=== PATIENT | female | born 1985 | race Two or more races ===

== ENCOUNTER 2022-06-11 08:14 | Day surgery (SDC) | payer OTHER ==
[~2022-06-11] VITALS: Ht 152.4 cm; Wt 68.0 kg
[~2022-06-11 08:14] MED LIST: BUSPIRONE HCL7.5 MG
[2022-06-11] MEDS ORDERED: SULFAMETHOXAZO1 EACH PO (15:15)
== END 2022-06-11 18:40 | disposition home or self-care (01) ==
LOC: CIR.AMB 08:14
PROVIDERS: ATTEND Student in an Organized Health Care Education/Training Program
DX: N87.1 Moderate cervical dysplasia (principal); Z91.013 Allergy to seafood; Z88.0 Allergy status to penicillin; Z88.6 Allergy status to analgesic agent; Z20.822 Contact with and (suspected) exposure to COVID-19; Z86.16 Personal history of COVID-19

== ENCOUNTER → 2024-03-14 14:49 | Outpatient (CLI) | payer OTHER ==
[~2024-03-14 14:49] MED LIST changes: +SULFAMETHOXAZO1 EACH PO
== END | disposition home or self-care (01) ==
LOC: PRENATAL 14:49
PROVIDERS: ATTEND Obstetrics & Gynecology Maternal & Fetal Medicine
DX: O36.80X0 Pregnancy with inconclusive fetal viability, not applicable or unspecified (principal); Z36.82 Encounter for antenatal screening for nuchal translucency; O09.519 Supervision of elderly primigravida, unspecified trimester; Z36.9 Encounter for antenatal screening, unspecified; Z14.8 Genetic carrier of other disease; O34.10 Maternal care for benign tumor of corpus uteri, unspecified trimester; O34.40 Maternal care for other abnormalities of cervix, unspecified trimester; Z3A.12 12 weeks gestation of pregnancy

== ENCOUNTER 2024-04-04 18:32 | Emergency (ER) | payer OTHER ==
[~2024-04-04] VITALS: Ht 152.4 cm; Wt 66.2 kg
[2024-04-04] MEDS ORDERED: WELLBUTRIN SR100 MG PO (19:07)
[2024-04-04] MEDS ORDERED: 0.9 % SODIUM CHLORIDE 1,000 ML IV SCH (19:30)
[2024-04-04] MEDS ORDERED: MEPERIDINE HCL/PF 25 MG/ML VIAL IV ONE (19:30)
[2024-04-04 20:20] LABS: HEMATOCRIT 31.7 % (36.0-45.00); MEAN CELL VOLUME 87.3 fL (80.00-100.00); MEAN CORPUSCULAR HEMOGLOBIN 30.2 pg (27.00-32.0); MEAN CORPUSCULAR HGB CONC 34.5 g/dl (32.0-36.0); PLATELET COUNT 315 K/uL (150-450); RED BLOOD COUNT 3.63 M/uL (4.00-6.00); RED CELL DISTRIBUTION WIDTH 13.6 % (11.5-14.5)
[2024-04-04 20:38] LABS: CREATININE SERUM 0.65 mg/dL (0.55-1.02); GFR 101.47; POTASSIUM 4.53 mEq/L (3.5-5.1)
[2024-04-04 22:04] LABS: PH,URINE 6.5 (5.0-8.0); URINE APPEARANCE Cloudy; URINE BILIRRUBIN Negative (NEGATIVE); URINE COLOR Yellow; URINE GLUCOSE Negative (NEGATIVE); URINE LEUKOCYTE Trace; URINE NITRATE Negative; URINE PROTEIN Negative (NEGATIVE); URINE UROBILINOGEN 0.2 E.U./dl
[2024-04-04 22:08] LABS: URINE BACTERIA 846.6 uL (0.0-1933); URINE EPITHELIAL CELLS 121.9 uL (0.0-38.8); URINE RBC 34.8 uL (0.0-20.8); URINE WBC 25.1 uL (0.0-23.2)
[2024-04-04 22:10] LABS: URINE BLOOD TRACE; URINE CAST 0.15 uL (0.0-1.40); URINE KETONE 40 (NEGATIVE)
== END 2024-04-04 23:31 | disposition home or self-care (01) ==
LOC: ER 18:34
PROVIDERS: Emergency Medicine
DX: O26.892 Other specified pregnancy related conditions, second trimester (principal); R10.2 Pelvic and perineal pain; O34.12 Maternal care for benign tumor of corpus uteri, second trimester; Z3A.15 15 weeks gestation of pregnancy; Z88.6 Allergy status to analgesic agent; Z88.0 Allergy status to penicillin; Z91.013 Allergy to seafood

== ENCOUNTER → 2024-04-07 | Emergency (ER) | payer OTHER ==
[~2024-04-07] MED LIST changes: +WELLBUTRIN SR100 MG PO
== END | disposition left against medical advice (07) ==
LOC: ER 18:27
DX: Z53.21 Procedure and treatment not carried out due to patient leaving prior to being seen by health care provider (principal)

== ENCOUNTER → 2024-05-17 13:19 | Outpatient (CLI) | payer OTHER ==
[~2024-05-17 13:19] MED LIST changes: +PRENATAL + DHA1 EAC1 PO
== END | disposition home or self-care (01) ==
LOC: PRENATAL 13:19
PROVIDERS: ATTEND Obstetrics & Gynecology Maternal & Fetal Medicine
DX: O35.00X0 Maternal care for (suspected) central nervous system malformation or damage in fetus, unspecified, not applicable or unspecified (principal); O35.3XX0 Maternal care for (suspected) damage to fetus from viral disease in mother, not applicable or unspecified; O44.00 Complete placenta previa NOS or without hemorrhage, unspecified trimester; O09.519 Supervision of elderly primigravida, unspecified trimester; O34.40 Maternal care for other abnormalities of cervix, unspecified trimester; Z3A.21 21 weeks gestation of pregnancy

== ENCOUNTER 2024-06-12 13:46 | Outpatient (CLI) | payer OTHER ==
[~2024-06-12] VITALS: Ht 152.4 cm; Wt 72.1 kg
[~2024-06-12 13:46] MED LIST changes: -PRENATAL + DHA1 EAC1 PO
[2024-06-12 14:40] VITALS: BP 101/67
[2024-06-12 14:58] LABS: PH,URINE 6.5 (5.0-8.0); URINE APPEARANCE Clear; URINE BACTERIA 799.2 uL (0.0-1933); URINE BILIRRUBIN Negative (NEGATIVE); URINE BLOOD NHT; URINE COLOR Yellow; URINE EPITHELIAL CELLS 56.2 uL (0.0-38.8); URINE GLUCOSE Negative (NEGATIVE); URINE LEUKOCYTE Negative; URINE NITRATE Negative; URINE PROTEIN Negative (NEGATIVE); URINE RBC 30.7 uL (0.0-20.8); URINE UROBILINOGEN 0.2 E.U./dl; URINE WBC 7.1 uL (0.0-23.2)
[2024-06-12] MEDS ORDERED: PRENATAL + DHA1 EAC1 PO (15:10)
[2024-06-12 15:12] VITALS: BP 103/62
[2024-06-12 15:12] LABS: HEMATOCRIT 32.2 % (36.0-45.00); MEAN CELL VOLUME 88.8 fL (80.00-100.00); MEAN CORPUSCULAR HGB CONC 33.2 g/dl (32.0-36.0); PLATELET COUNT 311 K/uL (150-450); RED BLOOD COUNT 3.63 M/uL (4.00-6.00); RED CELL DISTRIBUTION WIDTH 14.9 % (11.5-14.5)
[2024-06-12 15:16] LABS: AMYLASE 64 U/L (25-115); LIPASE 24 U/L (13-75)
[2024-06-12 15:23] LABS: HEMOGLOBIN 10.7 g/dL (12.0-15.00); MEAN CORPUSCULAR HEMOGLOBIN 29.4 pg (27.00-32.0)
[2024-06-12 15:32] LABS: ALBUMIN 2.7 gm/dL (3.4-5.0); BILIRUBIN TOTAL 0.25 mg/dL (0.3-1.2); CREATININE SERUM 0.3 mg/dL (0.55-1.02); GFR 247.66; GLOBULINA 3.4 G/DL (2.4-3.5); POTASSIUM 3.54 mEq/L (3.5-5.1); TOTAL PROTEIN 6.1 gm/dL (6.4-8.2)
[2024-06-12 15:43] LABS: URINE CAST 0.88 uL (0.0-1.40); URINE KETONE 40 (NEGATIVE)
[2024-06-12 16:18] VITALS: BP 101/67; BP 103/62
[2024-06-12] MEDS ORDERED: WELLBUTRIN 150 MG PO SCH ×2 (17:00→21:00)
[2024-06-12] MEDS ORDERED: BUSPIRONE PO SCH ×2 (17:00→21:00)
[2024-06-12] MEDS ORDERED: SOD FERRIC GLUC COMPLX/SUCROSE 62.5 MG/5 ML AMPUL IV NR (18:00)
[2024-06-12 19:40] VITALS: BP 100/63
[2024-06-12 23:15] VITALS: BP 96/61
[2024-06-13 04:42] VITALS: BP 90/56
[2024-06-13 06:04] VITALS: BP 103/70; O2SAT 98
[2024-06-13] MEDS ORDERED: VALTREX 1000 MG PO SCH (09:00)
[2024-06-13 12:28] VITALS: BP 99/72
== END 2024-06-13 13:38 | disposition home or self-care (01) ==
LOC: OBS/DEL 13:46 → LDR 17:00 → OBS/DEL 17:00 → LDR 06-13 13:38
PROVIDERS: Student in an Organized Health Care Education/Training Program; ATTEND General Practice
DX: O26.892 Other specified pregnancy related conditions, second trimester (principal); O34.10 Maternal care for benign tumor of corpus uteri, unspecified trimester; R10.2 Pelvic and perineal pain

== ENCOUNTER 2024-08-01 10:26 | Outpatient (CLI) | payer OTHER ==
[~2024-08-01 10:26] MED LIST changes: +PRENATAL + DHA1 EAC1 PO
== END 2024-08-01 10:27 | disposition home or self-care (01) ==
LOC: PRENATAL 10:26
PROVIDERS: ATTEND Obstetrics & Gynecology Maternal & Fetal Medicine
DX: O26.849 Uterine size-date discrepancy, unspecified trimester (principal); O36.8199 Decreased fetal movements, unspecified trimester, other fetus; O09.519 Supervision of elderly primigravida, unspecified trimester; O34.10 Maternal care for benign tumor of corpus uteri, unspecified trimester; O34.40 Maternal care for other abnormalities of cervix, unspecified trimester; O32.9XX0 Maternal care for malpresentation of fetus, unspecified, not applicable or unspecified; Z3A.32 32 weeks gestation of pregnancy

== ENCOUNTER 2024-08-29 12:45 | Outpatient (CLI) | payer OTHER | END 2024-08-29 12:48 | disposition home or self-care (01) | LOC: PRENATAL 12:45 | PROVIDERS: ATTEND Obstetrics & Gynecology Maternal & Fetal Medicine | DX: O26.849 Uterine size-date discrepancy, unspecified trimester (principal); O36.8199 Decreased fetal movements, unspecified trimester, other fetus; O09.519 Supervision of elderly primigravida, unspecified trimester; O34.10 Maternal care for benign tumor of corpus uteri, unspecified trimester; O34.40 Maternal care for other abnormalities of cervix, unspecified trimester; O32.9XX0 Maternal care for malpresentation of fetus, unspecified, not applicable or unspecified; Z3A.36 36 weeks gestation of pregnancy ==

== ENCOUNTER 2024-09-14 13:03 | Inpatient (IN) | payer OTHER ==
[~2024-09-14] VITALS: Ht 152.4 cm; Wt 3.6 kg
[2024-09-14 11:53] VITALS: BP 112/56
[2024-09-14] MEDS ORDERED: RINGERS SOLUTION,LACTATED 1,000 ML IV SCH (13:45)
[2024-09-14] MEDS ORDERED: ACETAMINOPHEN 500 MG GEL..CAP PO ONE ×3 (14:00→21:30)
[2024-09-14] MEDS ORDERED: VALTREX1000 MG PO (14:20)
[2024-09-14 14:46] LABS: URINE APPEARANCE Clear; URINE BILIRRUBIN Negative (NEGATIVE); URINE BLOOD Negative; URINE COLOR Yellow; URINE GLUCOSE Negative (NEGATIVE); URINE LEUKOCYTE Negative; URINE NITRATE Negative; URINE PROTEIN Trace (NEGATIVE); URINE UROBILINOGEN 0.2 E.U./dl
[2024-09-14 14:47] LABS: BASO % 0.2 % (0.1-1.2); EOS # 0.01 (0.04-0.54); EOS % 0.1 % (0.7-7.0); HEMOGLOBIN 10.8 g/dL (11.2-15.7); LYMPH # 0.39 (1.18-3.74); LYMPH % 2.3 % (19.3-53.1); MEAN CORPUSCULAR HEMOGLOBIN 28.1 pg (25.6-32.2); MONO # 0.85 (0.24-0.82); NEUT # 15.64 (1.56-6.13); PLATELET COUNT 238 K/uL (163-369); RED BLOOD COUNT 3.85 M/uL (3.93-5.22); RED CELL DISTRIBUTION WIDTH 17.5 % (11.6-14.4)
[2024-09-14 14:51] LABS: URINE BACTERIA 112.6 uL (0.0-1933); URINE EPITHELIAL CELLS 39.5 uL (0.0-38.8); URINE RBC 12.9 uL (0.0-20.8); URINE WBC 16.4 uL (0.0-23.2)
[2024-09-14 14:55] LABS: COVID-19 AG NEGATIVE (NEGATIVE)
[2024-09-14 15:19] LABS: ALBUMIN 2.8 gm/dL (3.4-5.0); BILIRUBIN TOTAL 0.67 mg/dL (0.3-1.2); CALCIUM 8.6 mg/dL (8.5-10.1); CREATININE SERUM 0.46 mg/dL (0.55-1.02); GFR 151.23; GLOBULINA 2.9 G/DL (2.4-3.5); POTASSIUM 3.39 mEq/L (3.5-5.1); TOTAL PROTEIN 5.7 gm/dL (6.4-8.2)
[2024-09-14 15:20] LABS: INR < 0.93; PARTIAL THROMBOPLASTIN TIME 26.4 SECONDS (22.0-34.0); PROTHROMBIN TIME 10.1 SECONDS (9.0-11.5)
[2024-09-14 15:22] LABS: INFLUENZA A AG NEGATIVE (NEGATIVE)
[2024-09-14 15:27] LABS: URINE CAST 0.29 uL (0.0-1.40); URINE CRYSTALS FEW /HPF; URINE KETONE 80 (NEGATIVE); URINE MUCUS SCANT
[2024-09-14 16:37] VITALS: BP 121/62; O2SAT 100
[2024-09-14 20:54] VITALS: BP 112/56; BP 127/54
[2024-09-14] MEDS ORDERED: VANCOMYCIN HCL 1,000 MG VIAL ONE (21:20)
[2024-09-14] MEDS ORDERED: VANCOMYCIN HCL 1,000 MG VIAL IV ONE (21:30)
[2024-09-14 23:10] VITALS: BP 127/61
[2024-09-15 03:25] VITALS: BP 114/61
[2024-09-15] MEDS ORDERED: GENTAMICIN SULFATE 40 MG/ML VIAL IV NR (07:10)
[2024-09-15 07:23] LABS: BASO % 0.3 % (0.1-1.2); EOS # 0.04 (0.04-0.54); EOS % 0.2 % (0.7-7.0); HEMATOCRIT 31.2 % (34.1-44.9); HEMOGLOBIN 10.3 g/dL (11.2-15.7); LYMPH # 0.77 (1.18-3.74); LYMPH % 4.3 % (19.3-53.1); MEAN CORPUSCULAR HEMOGLOBIN 28.2 pg (25.6-32.2); MONO # 0.87 (0.24-0.82); MONO % 4.9 % (4.7-12.5); NEUT # 15.73 (1.56-6.13); NEUT % 88.5 % (34.0-71.1); PLATELET COUNT 231 K/uL (163-369); RED BLOOD COUNT 3.65 M/uL (3.93-5.22); RED CELL DISTRIBUTION WIDTH 17.7 % (11.6-14.4)
[2024-09-15 08:05] VITALS: BP 115/68
[2024-09-15 08:19] LABS: ALBUMIN 2.6 gm/dL (3.4-5.0); BILIRUBIN TOTAL 0.64 mg/dL (0.3-1.2); CALCIUM 8.6 mg/dL (8.5-10.1); CREATININE SERUM 0.48 mg/dL (0.55-1.02); GFR 143.98; GLOBULINA 2.9 G/DL (2.4-3.5); POTASSIUM 3.39 mEq/L (3.5-5.1); TOTAL PROTEIN 5.5 gm/dL (6.4-8.2)
[2024-09-15] MEDS ORDERED: OXYTOCIN 500 ML IV SCH (08:30)
[2024-09-15] MEDS ORDERED: VANCOMYCIN HCL 1,000 MG VIAL IV SCH (09:00)
[2024-09-15 11:10] VITALS: BP 116/64
[2024-09-15 15:07] VITALS: BP 115/53
[2024-09-15] MEDS ORDERED: CHLORHEXIDINE GLUCONATE 120 ML BOTTLE TP SCH (15:30)
[2024-09-15] MEDS ORDERED: RINGERS SOLUTION,LACTATED 1,000 ML IV SCH (15:30)
[2024-09-15] MEDS ORDERED: OXYTOCIN 1,000 ML IV SCH (15:30)
[2024-09-15] MEDS ORDERED: MORPHINE SULFATE 4 MG/ML VIAL IV PRN (15:45)
[2024-09-15] MEDS ORDERED: ACETAMINOPHEN 500 MG GEL..CAP PO SCH (17:00)
[2024-09-15] MEDS ORDERED: GABAPENTIN 100 MG CAPSULE PO SCH (17:00)
[2024-09-15] MEDS ORDERED: DOCUSATE SODIUM 100MG CAP PO SCH (17:00)
[2024-09-15 20:11] VITALS: BP 114/73
[2024-09-15 22:35] LABS: ABG PH 7.223 (7.35-7.45); ABG pCO2 49.1 mmHg (35-45); BICARBONATE 19.8 mmol/l (23-25); SaO2 38.3 %; Tco2 21.3 mmol/l
[2024-09-15 22:47] LABS: ABG PO2 28.2 mmHg (80-100)
[2024-09-15 22:48] LABS: mode ROOM AIR; o2 21 %; puncture site UMBILICAL
[2024-09-16 01:36] VITALS: BP 104/66
[2024-09-16 06:50] VITALS: BP 107/71
[2024-09-16 08:22] VITALS: BP 101/66
[2024-09-16 09:36] LABS: BASO % 0.3 % (0.1-1.2); EOS # 0.07 (0.04-0.54); EOS % 0.5 % (0.7-7.0); HEMATOCRIT 30.2 % (34.1-44.9); HEMOGLOBIN 9.9 g/dL (11.2-15.7); LYMPH # 1.11 (1.18-3.74); LYMPH % 8.1 % (19.3-53.1); MEAN CORPUSCULAR HEMOGLOBIN 28.2 pg (25.6-32.2); MONO % 7.3 % (4.7-12.5); NEUT # 11.27 (1.56-6.13); PLATELET COUNT 198 K/uL (163-369); RED BLOOD COUNT 3.51 M/uL (3.93-5.22); RED CELL DISTRIBUTION WIDTH 18.2 % (11.6-14.4)
[2024-09-16 10:19] LABS: ALBUMIN 1.9 gm/dL (3.4-5.0); BILIRUBIN TOTAL 0.35 mg/dL (0.3-1.2); CALCIUM 8.2 mg/dL (8.5-10.1); CREATININE SERUM 0.41 mg/dL (0.55-1.02); GFR 172.7; GLOBULINA 2.7 G/DL (2.4-3.5); POTASSIUM 3.22 mEq/L (3.5-5.1); TOTAL PROTEIN 4.6 gm/dL (6.4-8.2)
[2024-09-16 16:15] VITALS: BP 119/82
[2024-09-16] MEDS ORDERED: CLINDAMYCIN PHOSPHATE 150 MG/ML (900mg) IV ONE (17:45)
[2024-09-16] MEDS ORDERED: OxyCODONE HCL 5 MG TABLET (ROXICODONE) PO PRN (17:45)
[2024-09-17 01:05] VITALS: BP 124/82
[2024-09-17 08:09] VITALS: BP 121/82
[2024-09-17] MEDS ORDERED: GABAPENTIN 100 MG CAPSULE PO SCH (09:00)
[2024-09-17] MEDS ORDERED: FERROUS SULFATE 325 MG TABLET.EC PO SCH (10:47)
[2024-09-17 15:58] VITALS: BP 127/83
[2024-09-18 00:25] VITALS: BP 136/81
[2024-09-18 08:26] VITALS: BP 120/70; O2SAT 99
[2024-09-18 12:49] VITALS: BP 130/74
[2024-09-19] MEDS ORDERED: ERYTHROMYCIN BASE OPHT 1GM EACH TUBE OP ONE (13:00)
[2024-09-19] MEDS ORDERED: OXYTOCIN 10 UNITS/ML VIAL IV ONE (13:00)
== END 2024-09-18 18:19 | disposition home or self-care (01) | DRG 786 ==
LOC: OBS/DEL 13:03 → LDR 13:06 → OBS/DEL 13:43 → OB/GYN 21:02 → LDR 21:02 → O/R 09-15 16:38 → OB/GYN 09-15 17:30
PROVIDERS: Obstetrics & Gynecology; ADMIT Student in an Organized Health Care Education/Training Program; ATTEND Student in an Organized Health Care Education/Training Program
PROC: 4A1HXCZ Monitoring of Products of Conception, Cardiac Rate, External Approach (ICD-10-PCS; 2024-09-14)
PROC: BY4FZZZ Ultrasonography of Third Trimester, Single Fetus (ICD-10-PCS; 2024-09-14)
PROC: 10D00Z1 Extraction of Products of Conception, Low, Open Approach (ICD-10-PCS; principal; 2024-09-15 19:45)
DX: O76 Abnormality in fetal heart rate and rhythm complicating labor and delivery (principal); O41.1230 Chorioamnionitis, third trimester, not applicable or unspecified; O26.843 Uterine size-date discrepancy, third trimester; O36.8130 Decreased fetal movements, third trimester, not applicable or unspecified; Z3A.38 38 weeks gestation of pregnancy; Z37.0 Single live birth

== ENCOUNTER → 2025-03-23 08:04 | Outpatient (CLI) | payer OTHER ==
[~2025-03-23 08:04] MED LIST changes: +VALTREX1000 MG PO
== END | disposition home or self-care (01) ==
LOC: PRENATAL 08:04
DX: O36.80X0 Pregnancy with inconclusive fetal viability, not applicable or unspecified (principal); O26.891 Other specified pregnancy related conditions, first trimester; O34.41 Maternal care for other abnormalities of cervix, first trimester; O09.521 Supervision of elderly multigravida, first trimester; O34.219 Maternal care for unspecified type scar from previous cesarean delivery; O34.11 Maternal care for benign tumor of corpus uteri, first trimester; Z3A.01 Less than 8 weeks gestation of pregnancy

== ENCOUNTER 2025-04-23 10:29 | Outpatient (CLI) | payer OTHER | END 2025-04-23 10:30 | disposition home or self-care (01) | LOC: PRENATAL 10:29 | PROVIDERS: ATTEND Obstetrics & Gynecology Maternal & Fetal Medicine | DX: O36.80X0 Pregnancy with inconclusive fetal viability, not applicable or unspecified (principal); Z36.82 Encounter for antenatal screening for nuchal translucency; Z14.8 Genetic carrier of other disease; O34.41 Maternal care for other abnormalities of cervix, first trimester; O09.521 Supervision of elderly multigravida, first trimester; O34.219 Maternal care for unspecified type scar from previous cesarean delivery; O99.341 Other mental disorders complicating pregnancy, first trimester; O34.11 Maternal care for benign tumor of corpus uteri, first trimester; Z3A.12 12 weeks gestation of pregnancy ==